=== PATIENT | male | born 1955 | race Caucasian/White ===

== ENCOUNTER 2023-09-11 23:46 | Emergency (ER) | payer SELFPAY ==
[~2023-09-11] VITALS: Ht 167.6 cm; Wt 81.6 kg
[2023-09-11 23:46] VITALS: BP 130/70; PULSE 104; RESP 16; TEMP 98.1
[2023-09-12 00:37] VITALS: BP 130/70; PULSE 104; RESP 16; TEMP 98.1
[2023-09-12] MEDS ORDERED: ACET-10509 PO (03:23)
[2023-09-12] MEDS ORDERED: MUPI2CRE22 TP (03:23)
== END 2023-09-12 03:58 | disposition home or self-care (01) ==
LOC: MED 23:46
DX: S00.03XA Contusion of scalp, initial encounter (principal); F10.129 Alcohol abuse with intoxication, unspecified; I10 Essential (primary) hypertension; E78.00 Pure hypercholesterolemia, unspecified; Z79.899 Other long term (current) drug therapy; Y90.9 Presence of alcohol in blood, level not specified; W01.198A Fall on same level from slipping, tripping and stumbling with subsequent striking against other object, initial encounter; Y93.89 Activity, other specified; Y92.89 Other specified places as the place of occurrence of the external cause; Y99.8 Other external cause status
CPT/HCPCS: 70450; 72125; 90471; 90715; 99285